=== PATIENT | female | born 1990 | race Caucasian/White ===

== ENCOUNTER 2019-09-06 09:48 | Inpatient (IN) ==
[2019-09-06] MEDS ORDERED: LACTATED RINGER'S 1,000 ML IV PRN (10:42)
[2019-09-06] MEDS ORDERED: OXYTOCIN 30 UNITS/500 ML BAG IV PRN ×2 (10:42→20:16)
[2019-09-06 11:04] LABS: Hematocrit (blood only) 36.6 % (37-47); Hemoglobin 12.6 g/dL (12.0-16.0); Mean Corpuscular Hemoglobin 33.2 pg (25-34); Mean Corpuscular Volume 96.6 fL (80-100); Mean Platelet Volume 9.6 fL (7.4-10.4); Platelet Count 182 K/uL (130-400); RDW Coefficient of Variation 12.3 % (11.5-14.5); Red Blood Count 3.79 M/uL (4.2-5.4)
[2019-09-06 11:33] LABS: Mean Corpuscular Hgb Conc 34.4 g/dL (32-36)
--- NOTE | 2019-09-06 12:43 | Obstetrical Progress Note ---
Date of Service September 06, 2019 Assessment & Plan Admission and Anticipated Discharge Date Admission Date: September 06, 2019 Subjective Admit Note 26 P0000 at 40.2 weeks with onset ol labor this morning. GBS is negative. course has been uncomplicated. cervix on admit by RN is 4/75/- 2/vertex. Will allow to labor on own as requested with no pain meds or epidureal wanted. Results & Data ([facility]) Vital Signs (Past 12 Hours) Vital Signs Temp Pulse Resp BP 09/06/19 12:10 37.0 C 20 09/06/19 12:09 90 115/69 09/06/19 09:58 37.0 C 92 H 20 123/76
--- NOTE | 2019-09-06 17:14 | Obstetrical Progress Note ---
Date of Service September 06, 2019 Assessment & Plan Admission and Anticipated Discharge Date Admission Date: September 06, 2019 Physical Exam Genitourinary: OB Exam Abdomen: + vertex Manual OB Exam: + cervical dilation 7 cm, + cervical effacement 100% and + station + 1 OB Exam Monitor Tracing: + external FHT monitor used, + external uterine monitor used, + category I and + normal FHT variability Results & Data ([facility]) Vital Signs (Past 12 Hours) Vital Signs Temp Pulse Resp BP 09/06/19 14:51 36.7 C 09/06/19 14:49 91 H 117/67 09/06/19 12:10 37.0 C 09/06/19 12:09 90 115/69 09/06/19 09:58 37.0 C 92 H 20 123/76
--- NOTE | 2019-09-06 18:57 | Obstetrical Progress Note ---
Date of Service September 06, 2019 Assessment & Plan Admission and Anticipated Discharge Date Admission Date: September 06, 2019 Physical Exam Genitourinary: Manual OB Exam: + cervical dilation 9 cm, + cervical effacement 100%, + station + 1 and + amniotic fluid meconium OB Exam Monitor Tracing: + external FHT monitor used, + external uterine monitor used, + category I and + normal FHT variability AROM with Amni-hook with meconium stained fluid Results & Data ([facility]) Vital Signs (Past 12 Hours) Vital Signs Temp Pulse Resp BP 09/06/19 18:30 26 H 09/06/19 14:51 36.7 C 09/06/19 14:49 91 H 117/67 09/06/19 12:10 37.0 C 09/06/19 12:09 90 115/69 09/06/19 09:58 37.0 C 92 H 20 123/76
--- NOTE | 2019-09-06 20:14 | Delivery Summary ---
Vaginal Delivery Summary Date of Service September 06, 2019 Supervising Physician Co-Signing Physician Notes Delivery note live female LIVIA over intact perineum with delayed cord clamping and Apgars 8/9 weight pending. Cord blood obtained and placenta delivered spontaneously and intact. No tears. EBL 250 ml. Final sponge and instrument count are correct. Mom and baby stable.
[2019-09-06] MEDS ORDERED: bisacodyL 10 MG SUPP PR PRN (20:16)
[2019-09-06] MEDS ORDERED: SUPERCREAM 0.870% 15 GM JAR EXT PRN (20:16)
[2019-09-06] MEDS ORDERED: ACETAMINOPHEN 325 MG TAB PO PRN (20:16)
[2019-09-06] MEDS ORDERED: HYDROCORTISONE ACETATE 25 MG SUPP PR PRN (20:16)
[2019-09-06] MEDS ORDERED: DIPHTHERIA/TETANUS/PERTUSSIS 0.5 ML SYR/VIAL IM ONE (20:16)
[2019-09-06] MEDS ORDERED: BENZOCAINE 20% AER SPR 82.5 GM CAN EXT PRN (20:16)
[2019-09-06] MEDS: DOCUSATE SODIUM 100 MG CAP PO SCH (21:53)
[2019-09-07] MEDS: IBUPROFEN 600 MG TAB PO PRN ×4 (03:27→20:51)
[2019-09-07 06:35] LABS: Hemoglobin 11.2 g/dL (12.0-16.0); Mean Corpuscular Hemoglobin 32.9 pg (25-34); Mean Corpuscular Volume 94.1 fL (80-100); Mean Platelet Volume 9.5 fL (7.4-10.4); Platelet Count 197 K/uL (130-400); RDW Coefficient of Variation 12.3 % (11.5-14.5); RDW Standard Deviation 41.6 fL (36.4-46.3)
[2019-09-07] MEDS: PRENATAL VITAMIN 1 TAB PO SCH (08:14)
[2019-09-07] MEDS: DOCUSATE SODIUM 100 MG CAP PO SCH ×2 (08:15→20:51)
[2019-09-07] MEDS ORDERED: NON-FORMULARY MEDICATION (Prenatal Vit-Iron Fum-Folic Ac [Prenatal Vitamin] 1 TAB) PO SCH (09:00)
--- NOTE | 2019-09-07 12:04 | Obstetrical Progress Note ---
Date of Service September 07, 2019 Assessment & Plan Admission and Anticipated Discharge Date Admission Date: September 06, 2019 Subjective PPD#1 doing well tolerating diet ambulating well Physical Exam Constitutional: WD/WN, vitals as above comfortable no edema neg Rosmery's tent d/c in AM Results & Data ([facility]) Vital Signs (Past 12 Hours) Vital Signs Temp Pulse Resp BP Pulse Ox 09/07/19 07:41 36.7 C 91 H 20 110/68 09/07/19 03:10 36.7 C 79 18 122/60 98 09/06/19 23:15 36.5 C 87 18 116/74 97 Laboratory Results Laboratory Results - last 48 hr 09/06/19 09/07/19 10:50 06:19 WBC 13.10 H 19.30 H RBC 3.79 L 3.40 L Hgb 12.6 11.2 L Hct 36.6 L 32.0 L MCV 96.6 94.1 MCH 33.2 32.9 MCHC 34.4 35.0 RDW Std Deviation 43.0 41.6 RDW Coeff of Mamta 12.3 12.3 Plt Count 182 197 MPV 9.6 9.5
[2019-09-07] MEDS ORDERED: bisacodyL 5 MG TABEC PO SCH (20:00)
[2019-09-07 20:44] VITALS: O2SAT 98
[2019-09-08] MEDS: IBUPROFEN 600 MG TAB PO PRN ×2 (00:58→07:18)
[2019-09-08 06:26] LABS: Hematocrit (blood only) 32.3 % (37-47); Hemoglobin 11.1 g/dL (12.0-16.0)
[2019-09-08] MEDS: PRENATAL VITAMIN 1 TAB PO SCH (08:37)
[2019-09-08] MEDS: DOCUSATE SODIUM 100 MG CAP PO SCH (08:37)
[2019-09-08 11:36] VITALS: BP 110/70; PULSE 69; TEMP 98.8
--- NOTE | 2019-09-08 12:44 | Obstetrical Progress Note ---
Date of Service September 08, 2019 Assessment & Plan (1) Normal course: PPD #2 Pt doing well d/C home with instructions Subjective Ambulation: ambulating normally Voiding: no voiding problems Passing Gas:: Yes Diet Tolerance:: regular diet Lochia:: Small Feeding Type:: breast feeding Review of Systems All systems reviewed & are unremarkable except as noted in HPI & below Physical Exam Constitutional WD/WN, vitals as above well developed and well nourished Eyes PERRL, conjunctivae normal, anicteric sclerae Neck trachea midline, no thyromegaly Respiratory normal respiratory effort, lungs clear to auscultation Auscultation: no crackles, no rales and no wheezes Cardiovascular RRR, no murmur, no edema Gastrointestinal (Abdomen) normal bowel sounds, soft, nontender, no hepatosplenomegaly Uterus is below umbilicus Musculoskeletal no cyanosis or clubbing, extremities motor strength 5/5 Skin no rashes, warm and dry Neurologic patellar DTR's 2+ bilat, sensation intact Psychiatric A+Ox3, euthymic affect Genitourinary normal external appearance Results & Data Vital Signs (Past 12 Hours) Vital Signs Temp Pulse Resp BP 09/08/19 07:20 37.1 C 69 20 110/70
== END 2019-09-08 15:20 | disposition home or self-care (01) | DRG 807 ==
LOC: OPB 09:48 → 4S1 09:54 → 4S2 22:45